=== PATIENT | male | born 1975 | race Caucasian/White ===

== ENCOUNTER 2017-01-11 20:41 | Emergency (ER) | payer SELFPAY ==
[~2017-01-11] VITALS: Ht 170.2 cm; Wt 108.9 kg
[2017-01-11] MEDS ORDERED: FAMO-132 PO (20:52)
[2017-01-11] MEDS ORDERED: [UNRECOGNIZED DRUG - REMARK] (20:52)
[2017-01-11] MEDS ORDERED: OMEP20TA20 PO (20:52)
--- NOTE | 2017-01-12 | NUR ---
Patient eloped from facility. ER physician notified.
--- NOTE | 2017-01-12 00:30 | NUR ---
Rizwana avery in [facility] - 01/12/17 at 0057 by [id number] Drained 3900ml from gunter cath. drainage was tea clolor with blood clots
--- NOTE | 2017-01-12 00:33 | NUR ---
Rizwana avery in [facility] - 01/12/17 at 0058 by [id number] D/Maryam gunter cath as ordered by Dr Quintanilla. Travon whalen cath as ordered by ROSINA
--- NOTE | 2017-01-12 00:44 | NUR ---
Rizwana avery in [facility] - 01/12/17 at 0058 by [id number] Result of ABG was give to Dr Quintanilla. setting to AC 16,tidal volume 600 with FI02 at 60%
== END 2017-01-12 | disposition left against medical advice (07) ==
LOC: ER 20:41
DX: Z53.21 Procedure and treatment not carried out due to patient leaving prior to being seen by health care provider (principal)
CPT/HCPCS: A4663